=== PATIENT | female | born 1965 | race Caucasian/White ===

== ENCOUNTER → 2016-11-22 | Outpatient (CLI) | payer BC ==
[~2016-11-22] MED LIST: TAMO20TA5 PO
--- NOTE | 2016-11-25 15:16 | MAMMOGRAPHY REPORT ---
BILATERAL DIGITAL SCREENING MAMMOGRAM TOMOSYNTHESIS WITH CAD: 11/22/2016 CLINICAL HISTORY: The patient reported to the technologist that she has had right medial breast thic kening for approximately 3-4 weeks. TECHNIQUE: Breast tomosynthesis in addition to standard 2D mammography was performed. Current study was also evaluated with a Computer Aided Detection (CAD) system. COMPARISON: Comparison is made to exams dated: 11/20/2015 mammogram, 11/16/2014 mammogram, 10/25/2013 m ammogram, 10/23/2012 mammogram, 10/22/2011 mammogram, and 10/18/2011 mammogram - [facility] enter. BREAST COMPOSITION: There are scattered areas of fibroglandular density in both breasts. FINDINGS: No suspicious masses, calcifications, or areas of architectural distortion are noted in e ither breast. There has been no significant interval change compared to prior exams. There are stab le post surgical changes in the right upper outer quadrant and left 12:00 breast from prior lumpecto my. Linear scar markers denote scars on bilateral superior breast. IMPRESSION: ACR BI-RADS CATEGORY 2: BENIGN There is no mammographic evidence of malignancy. A 1 year screening mammogram is recommended. The p atient reported to the technologist that she has right medial breast thickening. Recommend clinical follow-up; if the finding is clinically concerning, consider ultrasound for further evaluation. The patient will receive written notification of the results. Approximately 10% of breast cancers are not detected with mammography. A negative mammographic repor t should not delay biopsy if a clinically suggestive mass is present. Randi Mckeon M.D. /:11/23/2016 11:50:26 Proofer: Barbara QUIJANO(Niyah)(M), [facility] letter sent: Normal 1/2 BI-RADS Code: ACR BI-RADS Category 2: Benign
== END | disposition home or self-care (01) ==
LOC: C.MAMM 08:57
PROVIDERS: ATTEND Family Medicine
DX: Z12.31 Encounter for screening mammogram for malignant neoplasm of breast (principal); Z85.3 Personal history of malignant neoplasm of breast

== ENCOUNTER → 2017-11-25 | Outpatient (CLI) | payer BC ==
--- NOTE | 2017-11-26 07:51 | MAMMOGRAPHY REPORT ---
BILATERAL DIGITAL SCREENING MAMMOGRAM TOMOSYNTHESIS WITH CAD: 11/25/2017 CLINICAL HISTORY: Routine screening. Patient has no complaints. TECHNIQUE: Breast tomosynthesis in addition to standard 2D mammography was performed. Current study was also evaluated with a Computer Aided Detection (CAD) system. COMPARISON: Comparison is made to exams dated: 11/22/2016 mammogram, 11/20/2015 mammogram, 11/16/2014 ma mmogram, 10/25/2013 mammogram, 10/23/2012 mammogram, and 10/22/2011 mammogram - [facility] nter. BREAST COMPOSITION: There are scattered areas of fibroglandular density in both breasts. FINDINGS: There is a possible new cluster of microcalcifications in the 12:00 anterior left breast, for which additional spot magnification views are recommended. A 6 mm nodular asymmetry is seen in t he middle one third of the left breast along the posterior nipple line on the CC view (tomosynthesis slice 30/77), for which additional spot compression tomosynthesis views and possible ultrasound are r ecommended. Linear scar markers overlie the upper outer quadrant of each breast. In the right breast upper outer middle one third, there is expected architectural distortion and surgical clips from prior surgery. No other suspicious mass, architectural distortion or cluster of microcalcifications is seen bilater ally. IMPRESSION: ACR BI-RADS CATEGORY 0: INCOMPLETE EVALUATION: NEED ADDITIONAL IMAGING EVALUATION The possible new cluster of microcalcifications in the 12:00 left breast and 6 mm nodular asymmetry i n the middle one third of the left breast need additional imaging evaluation. The patient will be called to schedule an appointment. Approximately 10% of breast cancers are not detected with mammography. A negative mammographic report should not delay biopsy if a clinically suggestive mass is present. Mame Pearson M.D. ay/:11/25/2017 16:51:38 Manager Fire: Thuy QUIJANO(Niyah)(Jose Ramon)(LESLIE), [facility] letter sent: Addl Imaging 0 BI-RADS Code: ACR BI-RADS Category 0: Incomplete Evaluation: Need Additional Imaging Evaluation
== END | disposition home or self-care (01) ==
LOC: C.MAMM 09:06
PROVIDERS: ATTEND Family Medicine
DX: Z12.31 Encounter for screening mammogram for malignant neoplasm of breast (principal); R92.0 Mammographic microcalcification found on diagnostic imaging of breast; N64.89 Other specified disorders of breast

== ENCOUNTER → 2017-12-04 | Outpatient (CLI) | payer BC ==
--- NOTE | 2017-12-04 14:45 | MAMMOGRAPHY REPORT ---
UNILATERAL LEFT DIGITAL DIAGNOSTIC MAMMOGRAM TOMOSYNTHESIS AND TARGETED LEFT ULTRASOUND: 12/04/2017 CLINICAL HISTORY: Callback from screening mammogram for left breast calcifications and left breast as ymmetry. History of left breast cancer. TECHNIQUE: Breast tomosynthesis in addition to standard 2D mammography was performed. Spot magnific ation left CC and MLO views and spot compression left CC and MLO tomosynthesis images were obtained. COMPARISON: Comparison is made to exams dated: 11/25/2017 mammogram, 11/22/2016 mammogram, 11/20/2015 m ammogram, 11/16/2014 mammogram, 10/25/2013 mammogram, and 10/23/2012 mammogram - [facility] nter. BREAST COMPOSITION: There are scattered areas of fibroglandular density in the left breast. FINDINGS: Spot magnification views of the left breast demonstrate a new 6 mm cluster of faint pleomor phic calcifications in the left 12:00 breast anteriorly. The calcifications are indeterminate and st ereotactic biopsy is recommended for further evaluation. Spot compression views demonstrate a persis tent 6 mm nodular asymmetry in the left breast middle depth along the posterior nipple line on the cc view, not clearly evident on the MLO view. Targeted ultrasound was performed of the left breast at 12:00, 6:00, and subareolar region to evaluat e the nodular asymmetry. There is ill-defined hypoechoic shadowing centered in the left 12:00 periar eolar breast, consistent with postsurgical changes. The shadowing from the posttreatment changes rylee es evaluation difficult on ultrasound, however, no clear sonographic correlate for the nodular asymme try is seen. In the left 6:00 periareolar breast, there is an oval parallel hypoechoic 11 x 4 x 10 mm mass; review of the mammogram in this region demonstrates no clear mammographic correlates. This ma ss is indeterminate and ultrasound-guided core needle biopsy is recommended for further evaluation. The nodular asymmetry seen mammographically is also indeterminant and tomosynthesis stereotactic biop sy is recommended for further evaluation, given that no sonographic correlate is seen. IMPRESSION: ACR BI-RADS CATEGORY 4: SUSPICIOUS, TARGETED ULTRASOUND ACR BI-RADS CATEGORY 4: SUSPICIO US 1. New 6 mm cluster of faint calcifications within the left 12:00 breast. The calcifications are in determinate and stereotactic biopsy is recommended for further evaluation. 2. Persistent 6 mm nodular asymmetry seen on the cc view only along the posterior nipple line, with no clear sonographic correlate evident. The asymmetry is indeterminate and tomosynthesis stereotacti c guided biopsy is recommended for further evaluation. 3. Hypoechoic 11 mm mass is seen in the left 6:00 periareolar breast incidentally on ultrasound. Th e mass is indeterminate and ultrasound-guided core needle biopsy is recommended for further evaluatio n. A phone call was made to the physician's office to confirm faxed results were received. The patient has been verbally notified of the results. She tentatively scheduled the biopsies before leaving the department. Approximately 10% of breast cancers are not detected with mammography. A negative mammographic report should not delay biopsy if a clinically suggestive mass is present. Randi Mckeon M.D. ah/:12/04/2017 12:16:18 Order Entry: Jessy QUIJANO(Niyah)(Jose Ramon), [facility] letter sent: Abnormal 4/5 BI-RADS Code: ACR BI-RADS Category 4: Suspicious Ultrasound BI-RADS: ACR BI-RADS Category 4: Suspici ous
== END | disposition home or self-care (01) ==
LOC: C.MAMM 10:52
PROVIDERS: ATTEND Family Medicine
DX: R92.1 Mammographic calcification found on diagnostic imaging of breast (principal); N64.89 Other specified disorders of breast; N63.20 Unspecified lump in the left breast, unspecified quadrant

== ENCOUNTER → 2017-12-12 | Outpatient (CLI) | payer BC ==
--- NOTE | 2017-12-12 13:48 | Discharge Instructions ---
Discharge Instructions Procedure Procedure Date: December 12, 2017. Reason for visit: Left Cals/Asymmetry;Us Core Bx Left Mass. Discharge Discharge Date: December 12, 2017. Discharge Diagnosis: status post breast biopsies Instructions Activity Recommendations: Additional Limitations (see below) Return to School/Work: no limitations Recommended Home Diet: No Limitations Provider Instructions: ACTIVITY RECOMMENDATIONS: * No lifting, pushing, pulling or exercising the affected side for three days. RETURN TO SCHOOL/WORK: * You may return to work/school after the procedure, but do not perform any strenuous activities for 24 to 48 hours. MEDICATIONS: * Tylenol (two 325 mg) every four to six hours if needed for mild pain (if not allergic to Tylenol). DIET: * Resume previous diet. SPECIAL CARE INSTRUCTIONS: * Keep biopsy site dry for 24 hours. May shower after 24 hours, but do not soak (bathe) incision. * May remove Tegaderm (plastic patch) tomorrow AFTER showering. * Leave the steri-strips on for one week. Allow the steri-strips to fall off by themselves. If not off after one week, you may remove them. You may place a Bandaid crosswise over the strips, if desired. * Apply ice 10 minutes on and 10 minutes off as needed. * Wear a bra at bedtime to sleep more comfortably for 2-3 days. * Your referring physician should have the results after approximately 5 to 7 business days. * Call for unusual bleeding, fever, drainage, etc or if you have any questions call during normal business hours or after hours call Dr Mckeon, . FOLLOW UP VISIT: Follow-up with Referring Physician as scheduled. Allergies Coded Allergies: No Known Allergies (Verified Allergy, Unknown, 10/03/05) Carmella Jj Recommendations: Call your doctor if: * Temperature above 101 degrees * Pain not relieved by pain medicine ordered * There is increased drainage or redness from any incision * You have any unanswered questions or concerns. Your Doctors Instructions noted above were prepared by provider Randi Mckeon. Patient Signature Section: Patient Instructions Signature Page Catia Echavarriaer Patient (or Guardian) Signature/Date: I have read and understand the instructions given to me by my caregivers. Caregiver/RN/Doctor Signature/Date: The above-named patient and/or guardian has received patient instructions on this date. + Original Patient Signature Page (only) stays with chart. Please make copy for patient.
--- NOTE | 2017-12-12 14:18 | MAMMOGRAPHY REPORT ---
STEREOTACTIC GUIDED BIOPSY LEFT BREAST: 12/12/2017 CLINICAL HISTORY: Indeterminate calcifications in the left breast at approximately 12:00. Persistent nodular asymmetry seen within the left breast on the cc view, without a sonographic correlate eviden t. PATIENT CONSENT: The procedure, risks, benefits, and alternatives of stereotactic biopsy with clip pl acement were discussed with the patient, and verbal and written consent was obtained. A timeout was performed immediately prior to the procedure. PROCEDURE DESCRIPTION: With stereotactic guidance, aseptic technique, and lidocaine as a local anesth etic (1% lidocaine to anesthetize the skin and 1% lidocaine with epinephrine to anesthetize the deepe r tissues), the calcifications of concern in the left breast at approximately 12:00 were sampled mult iple times with a 9-gauge vacuum-assisted biopsy needle (Wipit). The path of approach was cran iocaudal. The specimen radiograph demonstrates calcifications to be present in the samples. A metal lic marker clip was placed at the biopsy site. This was confirmed on postprocedure mammograms. Dire ct pressure was applied at the biopsy site and hemostasis was readily achieved. The patient tolerate d the procedure without complication. She was given wound care instructions. After this, an attempt was made to perform tomosynthesis stereotactic guided biopsy of the left breas t asymmetry seen on the cc view only. Multiple superintendent plant images were taken, which do not clearly show th e nodular asymmetry. As the nodular asymmetry is not clearly evident on the superintendent plant images, biopsy was not performed. In retrospect, the asymmetry appears similar on the screening mammogram cc tomosynth esis images to some of the prior exams including the tomosynthesis cc view from the November 2015 exam, suggesting that this is more likely to be benign given the long-term stability. COMPARISON: Comparison is made to exams dated: 12/04/2017 mammogram, 11/25/2017 mammogram, 11/22/2016 m ammogram, 11/20/2015 mammogram, and 11/16/2014 mammogram - [facility]. IMPRESSION: STEREOTACTIC GUIDED BIOPSY 1. Stereotactic biopsy of indeterminate calcifications in the left 12:00 breast, with clip placement . The patient will receive pathology results from her referring provider. 2. Stereotactic biopsy was not performed of the left breast nodular asymmetry seen on one view only, as it could not be confidently visualized to target for biopsy. In retrospect, the asymmetry appear s similar to the prior 2016 exam and therefore is more likely to be benign. However, we will await p athology results from the other breast biopsies to determine if further evaluation with MRI is needed . Randi Mckeon M.D. ah/:12/12/2017 13:54:12 Biochemistry Technician: Barbara QUIJANO(Niyah)(Jose Ramon), [facility]
--- NOTE | 2017-12-12 14:18 | MAMMOGRAPHY REPORT ---
ULTRASOUND GUIDED BIOPSY LEFT BREAST: 12/12/2017 CLINICAL HISTORY: Left 6:00 breast mass. PATIENT CONSENT: The procedure, risks and benefits were discussed with the patient and informed writt en consent was obtained. A timeout was performed immediately prior to the procedure. PROCEDURE DESCRIPTION: With ultrasound guidance, aseptic technique, and lidocaine as the local anesth etic (1% lidocaine to anesthetize the skin and 1% lidocaine with epinephrine to anesthetize the deepe r tissues), the mass of concern in the region of fixative was sampled 5 times with a 14-gauge Achieve biopsy needle. Immediately thereafter, with ultrasound guidance, aseptic technique, and lidocaine a s the local anesthetic, a metallic localizer clip was placed at the biopsy site. Direct pressure was applied to the site immediately post procedure and hemostasis was achieved. Postprocedure unilatera l mammograms were performed to confirm clip placement. The patient tolerated the procedure without c omplication. She was given wound care instructions. The specimens were sent to pathology for analysi s. COMPARISON: Comparison is made to exams dated: 11/25/2017 mammogram, 11/22/2016 mammogram, 12/04/2017 m ammogram, and in the left 6:00 breast 12/04/2017 ultrasound - [facility]. IMPRESSION: ULTRASOUND GUIDED BIOPSY Ultrasound-guided biopsy of the left 6:00 breast mass, with clip placement. The patient will receive pathology results from her referring provider. Randi Mckeon M.D. /:12/12/2017 13:56:11 Engineering Equipment Operator: Barbara WHITEHEAD)(Jose Ramon), [facility]
--- NOTE | 2017-12-12 14:21 | MAMMOGRAPHY REPORT ---
UNILATERAL LEFT DIGITAL DIAGNOSTIC MAMMOGRAM TOMOSYNTHESIS: 12/12/2017 CLINICAL HISTORY: Status post left breast biopsies. TECHNIQUE: Breast tomosynthesis in addition to standard 2D mammography was performed. Postprocedura l left CC and ML tomosynthesis images were obtained. COMPARISON: Comparison is made to exams dated: 12/12/2017 stereotactic biopsy, 12/04/2017 ultrasound, mammogram, 11/25/2017 mammogram, 11/22/2016 mammogram, and 11/20/2015 mammogram - [facility]. BREAST COMPOSITION: There are scattered areas of fibroglandular density in the left breast. FINDINGS: A new dumbbell-shaped biopsy marker clip is seen at the site of the biopsied calcifications in the left 12:00 breast. A ribbon-shaped biopsy marker clip is seen within the left inferior breas t at approximately 6 to 7:00 at the site of the biopsied left 6:00 breast mass. No significant postb iopsy hematoma is seen. IMPRESSION: POST PROCEDURE IMAGING FOR MARKER PLACEMENT New biopsy marker clip status post left breast biopsies. Pathology results are pending. Approximately 10% of breast cancers are not detected with mammography. A negative mammographic report should not delay biopsy if a clinically suggestive mass is present. Randi Mckeon M.D. ah/:12/12/2017 13:57:43 Drop Clipper: Barbara QUIJANO(Niyah)(M), [facility] BI-RADS Code: Post Procedure Imaging For Marker Placement
== END | disposition home or self-care (01) ==
LOC: C.MAMM 12:37
PROVIDERS: ATTEND Family Medicine
DX: R92.1 Mammographic calcification found on diagnostic imaging of breast (principal); N64.9 Disorder of breast, unspecified; N63.20 Unspecified lump in the left breast, unspecified quadrant; D05.12 Intraductal carcinoma in situ of left breast; R92.0 Mammographic microcalcification found on diagnostic imaging of breast